=== PATIENT | male | born 1975 | race Caucasian/White ===

== ENCOUNTER 2019-08-27 05:28 | Day surgery (SDC) | payer OTHER ==
[~2019-08-27 05:28] MED LIST: [UNRECOGNIZED DRUG - OTHER]; [UNRECOGNIZED DRUG - OTHER] PO
[2019-08-27] MEDS ORDERED: PERCOCET 5-3251 EACH PO (11:32)
[2019-08-27] MEDS ORDERED: NEURONTIN600 M1 PO (11:33)
[2019-08-27] MEDS ORDERED: COLACE100 MG PO (11:34)
== END 2019-08-27 14:25 | disposition home or self-care (01) ==
LOC: CIR.AMB 05:28 → EDSTATUS 07:00 → SURG 07:00 → CIR.AMB 14:25
DX: K43.0 Incisional hernia with obstruction, without gangrene (principal)